=== PATIENT | male | born 1950 | race Caucasian/White ===

== ENCOUNTER 2017-04-10 15:11 | Emergency (ER) | payer OTHER, BC ==
[~2017-04-10] VITALS: Ht 170.2 cm; Wt 77.5 kg
[2017-04-10 16:20] LABS: HEMATOCRIT 47.4 % (38.0-50.0); HEMOGLOBIN 16.1 G/DL (12.5-16.6); MCH 31.7 PG (29.0-34.0); MCV 93.3 FL (86-99); PLATELET COUNT 267 K/uL (156-360); RBC DIS.WIDTH-SD 42.1 % (39-53); RED BLOOD COUNT 5.08 M/uL (4.00-5.50); WHITE BLOOD COUNT 8.5 K/uL (4.1-10.2)
[2017-04-10 16:33] LABS: CHLORIDE 97 MEQ/L (99-109); POTASSIUM 4.5 MEQ/L (3.7-5.4); SODIUM 133 MEQ/L (136-147)
[2017-04-10 16:38] LABS: CREATININE 0.7 MG/DL (0.6-1.3); GFR ESTIMATE (CALCULATED) > 59 mL/min/ (58.99-99999); GLUCOSE 110 mg/dL (70-99); UREA NITROGEN (BUN) 10 mg/dL (9-23)
[2017-04-10] MEDS ORDERED: ZOFRAN ODT4 MG PO (18:55)
[2017-04-10 19:13] VITALS: BP 144/91
== END 2017-04-10 19:16 | disposition home or self-care (01) ==
LOC: EME 15:11
DX: R51 Headache (principal); R11.2 Nausea with vomiting, unspecified; Z87.891 Personal history of nicotine dependence
CPT/HCPCS: 70450; 80048; 85027; 99281; 99284; J1885

== ENCOUNTER 2017-09-04 23:15 | Emergency (ER) | payer OTHER, BC ==
[~2017-09-04] VITALS: Ht 170.2 cm; Wt 77.7 kg
[~2017-09-04 23:15] MED LIST: ZOFRAN ODT4 MG PO
[2017-09-04 23:34] LABS: HEMATOCRIT 44.5 % (38.0-50.0); HEMOGLOBIN 15.3 G/DL (12.5-16.6); MCH 32.6 PG (29.0-34.0); MCHC 34.4 G/DL (30.0-36.0); MCV 94.9 FL (86-99); PLATELET COUNT 229 K/uL (156-360); RBC DIS.WIDTH-CV 11.9 % (11.8-14.6); RBC DIS.WIDTH-SD 41.5 % (39-53); RED BLOOD COUNT 4.69 M/uL (4.00-5.50); WHITE BLOOD COUNT 11.7 K/uL (4.1-10.2)
[2017-09-04 23:43] LABS: CHLORIDE 97 mEq/L (99-109); POTASSIUM 3.8 mEq/L (3.7-5.4); SODIUM 135 mEq/L (136-147)
[2017-09-04 23:44] LABS: GLUCOSE 149 mg/dL (70-99)
[2017-09-04 23:48] LABS: CREATININE 0.8 mg/dL (0.6-1.3); GFR ESTIMATE (CALCULATED) > 59 mL/min/ (58.99-99999)
[2017-09-04 23:49] LABS: UREA NITROGEN (BUN) 10 mg/dL (9-23)
[2017-09-05 03:42] LABS: CSF TUBE NUMBER TUBE #4
[2017-09-05 03:43] LABS: APPEARANCE CLEAR/COLORLESS; RED CELL COUNT 2 /MM^3 (0-1); WHITE CELL COUNT 1 /MM^3 (0-5)
[2017-09-05] MEDS ORDERED: FIORICET 50-301 EAC1 PO (04:05)
[2017-09-05 04:11] LABS: CSF PROTEIN 44 mg/dL (15-45); GLUCOSE, CSF 78 mg/dL (40-80)
[2017-09-05 04:20] VITALS: BP 126/67
== END 2017-09-05 04:21 | disposition home or self-care (01) ==
LOC: EME 23:15
PROVIDERS: Emergency Medicine
PROC: 009U3ZX Drainage of Spinal Canal, Percutaneous Approach, Diagnostic (ICD-10-PCS; principal; 2017-09-04)
DX: R51 Headache (principal); E86.0 Dehydration; E11.65 Type 2 diabetes mellitus with hyperglycemia; Z87.891 Personal history of nicotine dependence
CPT/HCPCS: 70450; 71046; 80048; 82945; 84157; 85027; 87070; 87205; 89051; 93005; 99281; 99285; J1200; J1885; J2765; J7030